=== PATIENT | female | born 1985 | race Caucasian/White ===

== ENCOUNTER → 2025-06-27 | Day surgery (SDC) | payer BC ==
[~2025-06-27] MED LIST: Bupivacaine HCl 0.5%/Epinephrine 1:200,000/PF 30 ml Vial ONE; CEFAZOLIN 1 GM VIAL ONE; Ketorolac Tromethamine 30 MG (1 mL) VIAL IVP SCH; Ketorolac Tromethamine 30 MG (1 mL) VIAL ONE; Lidocaine 1% PF 5 ML VIAL ONE; Ondansetron PF 4 MG/2 ML Vial ONE; PHENYLEPHRINE-NS 100 MCG/ML 10 ML SYRINGE ONE; PROPOFOL 20 ML ONE; Rocuronium Bromide 10 MG/ML (10ML VIAL) ONE; SUCCINYLCHOLINE/SOD CL,ISO/PF 200 MG/10 ML SYRINGE FS ONE; SUGAMMADEX SODIUM 200 MG/2 ML VIAL ONE
== END | disposition home or self-care (01) ==
LOC: CSHERS 02:03 → CSHSDC/OP 02:50
PROVIDERS: ATTEND Obstetrics & Gynecology
PROC: 10D24ZZ Extraction of Products of Conception, Ectopic, Percutaneous Endoscopic Approach (ICD-10-PCS; principal; 2025-06-27)
DX: O00.102 Left tubal pregnancy without intrauterine pregnancy (principal); O09.40 Supervision of pregnancy with grand multiparity, unspecified trimester; O09.529 Supervision of elderly multigravida, unspecified trimester; Z3A.00 Weeks of gestation of pregnancy not specified
CPT/HCPCS: 36415; 86850; 86900; 86901; 88305; 99285; J0690; J1100; J1885; J2250; J2405; J2704; J3010